=== PATIENT | male | born 1970 | race Caucasian/White ===

== ENCOUNTER → 2021-01-16 | Day surgery (SDC) | payer BC ==
[~2021-01-16] VITALS: Ht 185.4 cm; Wt 90.0 kg
[~2021-01-16] MED LIST: IV RINGERS,LACTATED 1000ML 1,000 ML IV ONE; LIDOCAINE 2% PF 5 ML VIAL. ONE; PROPOFOL 10 MG/ML (20ML) VIAL. IV ONE
[2021-01-16 08:02] VITALS: BP 119/82
[2021-01-16 09:20] VITALS: BP 135/87
--- NOTE | 2021-01-18 19:08 | PATHOLOGY ---
[facility] Accession Number: [id number] . 01 Material submitted: . rectum - RECTAL POLYP BIOPSY . 01 Clinical history: . CRC SCREEN COLONOSCOPY . 02 Diagnosis: Colorectal biopsies, rectal polyp: - Tubular adenoma. ([facility]; 01/18/2021[place] [facility] [place] 1356 Local . 02 Comment: There is no high grade dysplasia or evidence of malignancy. ([facility]; 01/18/2021) . 02 Electronically signed: . Mynor Kamara MD, Pathologist NPI- [id number] . 01 Gross description: . The specimen is received in formalin, labeled "Mynor Martini, rectal polyp BX". Received are 2 segments of pale weems tissue ranging in size from 0.3 to 0.4 cm in maximum dimensions. The specimen is submitted entirely in cassette A1.([facility]; 01/17/2021) [facility] 01/17/2021 1050 Local . 02 Pathologist provided ICD-10: D12.8 . 02 CPT . 352737 Specimen Comment: A courtesy copy of this report has been sent to [phone] Specimen Comment: [phone], Specimen Comment: Report sent to , DR DEE / DR HARPER Performed at: 01 [facility] [address], [place] [id number] MD Edmundo Duncan MD Phone: [phone] Performed at: 02 [facility] [address] [place], [place] [id number] MD Mynor Kamara MD Phone: [phone]
== END | disposition home or self-care (01) ==
LOC: ENDOS 07:33
PROVIDERS: ATTEND Internal Medicine Gastroenterology
DX: Z12.11 Encounter for screening for malignant neoplasm of colon (principal); K64.0 First degree hemorrhoids; K57.30 Diverticulosis of large intestine without perforation or abscess without bleeding; D12.8 Benign neoplasm of rectum; K63.89 Other specified diseases of intestine; Z79.899 Other long term (current) drug therapy; Z98.890 Other specified postprocedural states
CPT/HCPCS: 45380; J2704

== ENCOUNTER → 2021-04-05 | Outpatient (CLI) | payer BC ==
[2021-01-16 09:20] VITALS: BP 135/87
--- NOTE | 2021-04-05 14:55 | RAD ---
EXAM: Abdomen sonogram. HISTORY: Gallbladder disease. Cramping. TECHNIQUE: Sonographic imaging of the abdomen was performed. COMPARISON: None. FINDINGS: The liver is normal in size. No focal hepatic lesion is seen. The gallbladder is unremarkab le. The common bile duct is normal in caliber. The pancreas is obscured due to bowel gas. The inferio r vena cava is patent. The right kidney is unremarkable. IMPRESSION: No acute sonographic finding. Electronically signed by: Annie Joy MD (04/05/2021 2:53 PM) [facility]
== END ==
LOC: US 09:28
PROVIDERS: ATTEND Internal Medicine Gastroenterology
DX: R10.9 Unspecified abdominal pain (principal); Z84.89 Family history of other specified conditions
CPT/HCPCS: 76705